=== PATIENT | female | born 1950 | race Caucasian/White ===

== ENCOUNTER 2021-11-19 17:30 | Inpatient (IN) ==
[2021-11-19] MEDS ORDERED: ONDANSETRON INJ 2 MG/ML 2 ML VIAL IV PRN (18:52)
[2021-11-19] MEDS ORDERED: POLYETHYLENE (MIRALAX) 17 GM PACK PO PRN (18:52)
[2021-11-19] MEDS ORDERED: ACETAMINOPHEN 325 MG TAB PO PRN (18:52)
[2021-11-19] MEDS ORDERED: Heparin IV Adult Wt-Based Standard *NO* Bolus Protocol IV SCH (19:29)
[2021-11-19] MEDS ORDERED: DEXTROSE 50% 50 ML SYRINGE IV PRN (19:30)
[2021-11-19] MEDS ORDERED: CARBOHYDRATES FOR HYPOGLYCEMIA PO PRN (19:30)
[2021-11-19] MEDS ORDERED: GLUCOSE 10 TAB/TUBE PO PRN (19:30)
[2021-11-19] MEDS ORDERED: GLUCAGON FOR INJ 1 MG VIAL SQ PRN (19:30)
[2021-11-19] MEDS ORDERED: GLUCOSE 40% GEL 15 GM TUBE PO PRN (19:30)
[2021-11-19] MEDS ORDERED: HEPARIN SODIUM/DEXTROSE 25,000 UNITS/500 ML BAG IV SCH (19:45)
[2021-11-19] MEDS ORDERED: AZELASTINE HCL 0.1% NASAL 200 SPRAYS/27,400 MCG BTL NAE PRN (19:49)
[2021-11-19] MEDS ORDERED: DICYCLOMINE HCL 20 MG TAB PO PRN (19:49)
--- NOTE | 2021-11-19 19:49 | History & Physical Report ---
Date of Service November 19, 2021 Assessment & Plan (1) Chest pain: (2) NSTEMI (non-ST elevated myocardial infarction): (3) CAD (coronary artery disease): Plan: Patient is 70-year-old female with PMH CAD, DM II, HTN, history of TIA, asthma, diastolic dysfunction, paroxysmal SVT, GERD, depression, chronic right RBBB presented as direct admission from [facility] ER for upper back and chest pain. At [facility] EKG without acute ST changes, new left axis deviation was noted. Initial high- sensitivity troponin of 316. Patient was given 3 sublingual nitro and IV morphine with relief of chest pain. 1 inch Nitropaste was applied. Given 324mg ASA. IV heparin started. Cardiology had recommend cardiac cath that could not be completed there and she was transferred to [facility] Upon arrival here at [facility] patient denies chest pain. Reports 3 out of 10 discomfort between scapulas which has decreased since her initial presentation at [facility] ER. Denies any current shortness of breath, palpitations, dizziness History cardiac cath 2014: 30% mid LAD stenosis. Nuclear stress test 06/2021 without inducible ischemia. -Monitor Vitals -Continue IV heparin -Continue nitro paste -Repeat EKG in am -Will trend troponin -Echo -lipid panel in am, continue rosuvastatin -Aspirin -Continue metoprolol succinate -Cardiology consult. Spoke with Dr Ann who accepted patient. Spoke with Dr Walker who recommends continued medical treatment and to notify if patient would develop any recurrent CP (4) Diabetes mellitus, type II: Plan: A1c: 8.3 on 10/10/2021 -Hold home insulin and Ozempic -Basal bolus insulin per protocol (5) HTN (hypertension): Plan: - Continue losartan, metoprolol succinate (6) TIA (transient ischemic attack): Plan: - Continue rosuvastatin (7) Asthma: Plan: No signs of exacerbation -Continue Breo, continue albuterol as needed (8) Diastolic dysfunction: Plan: Appears euvolemic -Hold torsemide and reassess tomorrow (9) Paroxysmal SVT (supraventricular tachycardia): Plan: - Continue metoprolol succinate (10) RBBB: Plan: Chronic RBBB (11) GERD (gastroesophageal reflux disease): Plan: - Continue PPI (12) Depression: Plan: - Continue duloxetine DVT Prophylaxis -On IV heparin Full Code as per discussion with pt Follows with Dr Driscoll for routine care Pt was seen and care coordinated with Dr Montes. See addendum Admission and Anticipated Discharge Date Admission Date: November 19, 2021 History of Present Illness Chief Complaint: CP Primary Care Provider: Meg Davies MD Patient is 70-year-old female with PMH CAD, DM II, HTN, history of TIA, asthma, diastolic dysfunction, paroxysmal SVT, GERD, depression, chronic right RBBB presented as direct admission from [facility] ER. Patient reports has been having intermittent chest pain with associated shortness of breath, mid back pain between scapulas that can occur with rest or exertion for several months. States yesterday had some pain between scapulas. This morning woke up and pain was increased. She reports she pulled some weeds this morning and then around 10 AM started with sharp mid chest pain with some diaphoresis, shortness of breath. Patient denies any dizziness, palpitations. She took 2 sublingual nitro without relief and she presented at [facility] ER. There EKG without acute ST changes, new left axis deviation was noted. Initial high-sensitivity troponin of 316. Patient was given 3 sublingual nitro and IV morphine with relief of chest pain. 1 inch Nitropaste was applied. Discussed with cardiology there who had recommended starting heparin. Patient received heparin bolus at [facility]. She was given 324 mg aspirin. Cardiology had recommended patient undergo cardiac catheterization which was unable to be performed there. [facility] had excepted however no beds currently available and then patient requested coming to an [facility]. Upon arrival here at [facility] patient denies chest pain. Reports 3 out of 10 discomfort between scapulas which has decreased since her initial presentation at [facility] ER. Denies any current shortness of breath, palpitations, dizziness, headache, chest pain. Chronic BLE edema reports is at baseline. Denies fever/chills, N/V/D/C, syncope, vision changes, neck pain, orthopnea, cough, sore throat, choking, otalgia, rhinorrhea, abdominal pain, paresthesias, weakness, extremity weakness, rashes, urinary symptoms. History cardiac cath 2015: 30% mid LAD stenosis. Nuclear stress test 06/2021 without inducible ischemia. Allergies Allergy/AdvReac Type Severity Reaction Status Date / Time furosemide Allergy Mild constipation, Unverified 08/09/13 07:07 vaginal itching lisinopril Allergy Mild cough Unverified 08/09/13 07:07 pioglitazone Allergy Mild shakiness, Unverified 08/09/13 07:07 nausea Home Medications Medication Instructions Recorded Confirmed Type acetaminophen 325 mg tablet 650 mg PO BID PRN Pain 11/19/21 11/19/21 History (Tylenol) albuterol 90 mcg/actuation aerosol 108 mcg inhalation Q4 PRN Wheezing 11/19/21 11/19/21 History inhaler azelastine 137 mcg (0.1 %) nasal 1 spray intranasal BID PRN Nasal 11/19/2111/19 History spray aerosol Congestion calcium 600 mg capsule 600 mg PO DAILY 11/19/21 11/19/21 History cholecalciferol (vitamin D3) 50 50 mcg PO DAILY 11/19/21 11/19/21 History mcg (2,000 unit) capsule (Vitamin D3) dicyclomine 20 mg tablet 20 mg PO QID PRN Abdominal 11/19/21 11/19/21 History Discomfort duloxetine 30 mg capsule,delayed 30 mg PO DAILY 11/19/21 11/19/21 History release fluticasone furoate 200 1 inh inhalation DAILY 11/19/21 11/19/21 History mcg-vilanterol 25 mcg/dose inhalation powder (Breo Ellipta) guaifenesin 1,200 mg tablet, 1,200 mg PO BID PRN Congestion 11/19/21 11/19/21 History extended release 12 hr (Mucinex) insulin aspart U-100 100 unit/mL See Rx Instructions .Route .COMPLEX 11/19/21 11/19/21 History (3 mL) subcutaneous pen (Novolog Flexpen U-100 Insulin aspart) insulin glargine 100 unit/mL 48 unit subcut PM 11/19/21 11/19/21 History subcutaneous cartridge losartan 50 mg tablet 50 mg PO DAILY 11/19/21 11/19/21 History metoprolol succinate 25 mg 25 mg PO DAILY 11/19/21 11/19/21 History tablet,extended release 24 hr nitroglycerin 0.4 mg sublingual 0.4 mg sublingual DIRECTED 11/19/21 11/19/21 History tablet omeprazole 20 mg tablet,delayed 20 mg PO DAILY 11/19/21 11/19/21 History release rosuvastatin 20 mg tablet (Crestor) 20 mg PO DAILY 11/19/21 11/19/21 History semaglutide 1 mg/dose (4 mg/3 mL) 1 mg subcut WK 11/19/21 11/19/21 History subcutaneous pen injector (Ozempic) torsemide 5 mg tablet 5 mg PO DAILY 11/19/21 11/19/21 History Past Med/Surg History Medical History Asthma CAD (coronary artery disease) Depression Diabetes mellitus, type II Diastolic dysfunction GERD (gastroesophageal reflux disease) HTN (hypertension) Paroxysmal SVT (supraventricular tachycardia) RBBB TIA (transient ischemic attack) Surgical History History of appendectomy History of hysterectomy History of tonsillectomy and adenoidectomy Hx of cardiac cath 2014 Family History Sister Breast cancer Grandfather (Maternal) Lung cancer Mother Dementia Social History Smoking Status: Never smoker Hx Alcohol Use: No Hx Substance Use: No Preferred Language: Micronesian Communication Ability: Effective Technical Service Rep Required: No Beliefs That Will Affect Care: None Current Living Situation: Spouse Other Information That Helps Us Care for You: No Feels Safe at Home: Yes Safety Concerns: Feels Safe At This Time Assistive Devices: Glasses Review of Systems Review of Systems: All systems reviewed & are unremarkable except as noted in HPI & below Physical Exam Physical Exam: General: no distress, overweight Head: normocephalic, atraumatic Eyes: conjunctiva non-injected, anicteric ENT: normal inspection external ears, nose, mucous membranes moist Neck: supple, trachea midline Lungs: clear, no respiratory distress, no wheezing/rhonchi/rales CV: RRR, no murmur, trace pretibial edema Abd: normal BS, soft, non-tender Ext: no cyanosis, no calf tenderness Neuro: A&O x 3, no focal deficits noted, normal affect Skin: warm, dry Results & Data Results & Data ([place]) Vital Signs (Past 12 Hours) Vital Signs Temp Pulse Resp BP Pulse Ox O2 Del Method 36.3 C L 73 18 149/74 H 94 11/19/21 18:45 11/19/21 18:45 11/19/21 18:45 11/19/21 18:45 11/19/21 18:45 11/19/21 18:45 Laboratory Results Short CBC 11/19/21 Range/Units 19:19 WBC 8.97 (4.8-10.8) K/ul Hgb 13.7 (12.0-16.0) g/dl Hct 39.8 (34.1-44.9) % Plt Count 209 (130-400) K/uL BMP 11/19/21 19:19 Sodium 139 Potassium 3.9 Chloride 106 Carbon Dioxide 24 BUN 13 Creatinine 0.54 L Glucose 143 H Calcium 9.3 Liver Function 11/19/21 Range/Units 19:19 Total Bilirubin 0.5 (0.2-1.0) mg/dl AST 38 (13-39) U/L ALT 30 (7-52) U/L Alkaline Phosphatase 53 (34-104) U/L Albumin 3.9 (3.4-5.0) gm/dl Diagnostic Findings Chest X-Ray 11/19/21 19:51 XR chest 1V portable CLINICAL HISTORY: Atypical chest pain. COMPARISON STUDY: No previous studies for comparison. FINDINGS: No pneumothorax or pleural effusion is present. There is no consolidation to suggest pneumonia. Moderate cardiomegaly is noted. There is no evidence for overt pulmonary edema. IMPRESSION: No acute cardiopulmonary findings. Cardiomegaly. ACT 112: Negative or not required by law. Electronically signed by: Jayson León M.D. 11/19/2021 8:52 PM ECG Rate (beats per minute): 69 Rhythm: sinus rhythm Findings: + 1st degree AV block and + RBBB Code Status & VTE Plan VTE Prophylaxis Plan VTE Prophylaxis will be ordered: Yes Supervising Physician Co-Signing Physician Notes Attending addendum: The patient was seen and examined in telemetry unit on 11/19/2021 She is transferred from [facility] with unstable angina She is free from any significant pain during my examination On examination Lying in bed comfortably Hemodynamically stable Chestclear to auscultate bilaterally HeartS1-S2 Abdomenbenign Extremitiestrace edema bilaterally Her admission labs, EKG and imaging studies reviewed Has significant elevation of troponin and keeps on rising without any ST elevation in the subsequent EKGs Has non-ST elevation VA and will need cardiac cath Cardiology has been consulted and aware Agree with assessment and plan as outlined above by MNYOR Garcia Dr
[2021-11-19 19:55] LABS: Basophils # (auto) 0.05 K/uL (0-0.2); Basophils % (auto) 0.6 %; Eosinophils # (auto) 0.12 K/uL (0-0.50); Eosinophils % (auto) 1.3 %; Hematocrit (blood only) 39.8 % (34.1-44.9); Hemoglobin 13.7 g/dl (12.0-16.0); Immature Granulocytes # (auto) 0.03 K/uL (0.00-0.02); Immature Granulocytes % (auto) 0.3 %; Lymphocytes # (auto) 3.57 K/uL (1.2-3.4); Lymphocytes % (auto) 39.8 %; Mean Corpuscular Hemoglobin 29.6 pg (25.0-34.0); Mean Corpuscular Hgb Conc 34.4 g/dL (32.0-36.0); Mean Platelet Volume 10.1 fL (9.4-12.3); Monocytes # (auto) 0.62 K/uL (0.24-0.82); Monocytes % (auto) 6.9 %; Neutrophils # (auto) 4.58 K/uL (1.4-6.5); Neutrophils % (auto) 51.1 %; Platelet Count 209 K/uL (130-400); RDW Coefficient of Variation 11.9 % (11.5-14.5); RDW Standard Deviation 37.5 fL (36.4-46.3); Red Blood Count 4.63 M/uL (3.93-5.22); White Blood Count 8.97 K/ul (4.8-10.8)
[2021-11-19] MEDS ORDERED: ALBUTEROL HFA 8 GM INHALER INH PRN (19:59)
[2021-11-19 20:47] LABS: Albumin Globulin Ratio 1.4 (0.9-2); Albumin Level 3.9 gm/dl (3.4-5.0); BUN Creatinine Ratio 24.1 (10-20); Bilirubin,Total 0.5 mg/dl (0.2-1.0); Calcium 9.3 mg/dl (8.5-10.1); Creatinine Clr Calc Pharmacy 105.8 ml/min; Est GFR (Non-African American) 94.9 ml/min; Globulin 2.8 gm/dl (2.5-4.0); Magnesium 1.9 mg/dl (1.7-2.4); Potassium 3.9 mmol/L (3.5-5.1); Total Protein 6.7 gm/dl (6.0-8.3)
[2021-11-19 20:53] LABS: Troponin I High Sensitivity 2785.5 pg/ml (0-14)
--- NOTE | 2021-11-19 20:53 | XRay Report ---
XR chest 1V portable CLINICAL HISTORY: Atypical chest pain. COMPARISON STUDY: No previous studies for comparison. FINDINGS: No pneumothorax or pleural effusion is present. There is no consolidation to suggest pneumo [place]ley. Moderate cardiomegaly is noted. There is no evidence for overt pulmonary edema. IMPRESSION: No acute cardiopulmonary findings. Cardiomegaly. ACT 112: Negative or not required by law. Electronically signed by: Jayson León M.D. 11/19/2021 8:52 PM
[2021-11-19 20:54] LABS: Partial Thromboplastin Time 26.2 Seconds (21.0-31.0)
[2021-11-19] MEDS: INSULIN ASPART PER UNIT SC SCH (21:06)
[2021-11-19] MEDS: LANTUS PER UNIT CHARGE SQ SCH (21:06)
[2021-11-19] MEDS: NITROGLYCERIN 2% OINTMENT 30GM TUBE EXT SCH (23:12)
[2021-11-20 03:51] LABS: Hematocrit (blood only) 39.8 % (34.1-44.9); Hemoglobin 13.5 g/dl (12.0-16.0); Mean Corpuscular Hemoglobin 29.8 pg (25.0-34.0); Mean Corpuscular Hgb Conc 33.9 g/dL (32.0-36.0); Mean Corpuscular Volume 87.9 fL (80.0-100.0); Mean Platelet Volume 9.9 fL (9.4-12.3); Platelet Count 194 K/uL (130-400); RDW Coefficient of Variation 12.1 % (11.5-14.5); RDW Standard Deviation 38.9 fL (36.4-46.3); Red Blood Count 4.53 M/uL (3.93-5.22); White Blood Count 7.33 K/ul (4.8-10.8)
[2021-11-20 04:03] LABS: Partial Thromboplastin Ratio 1.4; Partial Thromboplastin Time 38.4 Seconds (21.0-31.0)
[2021-11-20 04:15] LABS: BUN Creatinine Ratio 20.4 (10-20); Calcium 8.9 mg/dl (8.5-10.1); Chol HDL Ratio 4.6 (0-5); Creatinine Clr Calc Pharmacy 105.8 ml/min; Est GFR (Non-African American) 94.9 ml/min; Potassium 3.7 mmol/L (3.5-5.1)
[2021-11-20] MEDS: NITROGLYCERIN 2% OINTMENT 30GM TUBE EXT SCH ×4 (05:28→23:23)
[2021-11-20] MEDS: INSULIN ASPART PER UNIT SC SCH ×4 (05:29→20:22)
--- NOTE | 2021-11-20 08:25 | Cardiology Consultation ---
Date of Consultation November 20, 2021 Assessment & Plan (1) NSTEMI (non-ST elevated myocardial infarction): (2) Chest pain: (3) CAD (coronary artery disease): (4) Diabetes mellitus, type II: (5) RBBB: Plan I agree the patient will need a cardiac catheterization. She previously has had cardiac catheterizations and understands the procedure. It should be noted however, that previously they tried to go in through the wrist and were unsuccessful and had to go in through the femoral artery. We will plan for a femoral artery approach this time as well. She understands the risks and benefit of a cardiac catheterization also the need for possible coronary intervention such as a coronary stent. Depending on the schedule we hope to have this completed today. History of Present Illness Attending Physician: Raul Santamaria MD History of Present Illness This is a 70-year-old female who follows with Esa Ontiveros through our clinic. She has a history as outlined below. She presented to [facility] emergency department with chest pain and an elevation in her cardiac markers consistent with a non-STEMI. The patient was transferred to [place] in anticipation of the need for cardiac catheterization. She currently is pain-free. She denies shortness of breath. No dizziness or lightheadedness. Past medical history: 1.Atherosclerotic coronary disease with prior diagnostic cardiac catheterization 2008 and 2014 with [id number] 30% mid LAD stenosis only 2.Hypertension with mild diastolic dysfunction 3.Dyslipidemia on therapy 4.Chronic right bundle branch block, chronic Allergies Allergy/AdvReac Type Severity Reaction Status Date / Time furosemide Allergy Mild constipation, Unverified 08/09/13 07:07 vaginal itching lisinopril Allergy Mild cough Unverified 08/09/13 07:07 pioglitazone Allergy Mild shakiness, Unverified 08/09/13 07:07 nausea Home Medications Medication Instructions Recorded Confirmed Type acetaminophen 325 mg tablet 650 mg PO BID PRN Pain 11/19/21 11/19/21 History (Tylenol) albuterol 90 mcg/actuation aerosol 108 mcg inhalation Q4 PRN Wheezing 11/19/21 11/19/21 History inhaler azelastine 137 mcg (0.1 %) nasal 1 spray intranasal BID PRN Nasal 11/19/21 11/19/21 History spray aerosol Congestion calcium 600 mg capsule 600 mg PO DAILY 11/19/21 11/19/21 History cholecalciferol (vitamin D3) 50 50 mcg PO DAILY 11/19/21 11/19/21 History mcg (2,000 unit) capsule (Vitamin D3) dicyclomine 20 mg tablet 20 mg PO QID PRN Abdominal 11/19/21 11/19/21 History Discomfort duloxetine 30 mg capsule,delayed 30 mg PO DAILY 11/19/21 11/19/21 History release fluticasone furoate 200 1 inh inhalation DAILY 11/19/21 11/19/21 History mcg-vilanterol 25 mcg/dose inhalation powder (Breo Ellipta) guaifenesin 1,200 mg tablet, 1,200 mg PO BID PRN Congestion 11/19/21 11/19/21 History extended release 12 hr (Mucinex) insulin aspart U-100 100 unit/mL See Rx Instructions .Route .COMPLEX 11/19/21 11/19/21 History (3 mL) subcutaneous pen (Novolog Flexpen U-100 Insulin aspart) insulin glargine 100 unit/mL 48 unit subcut PM 11/19/21 11/19/21 History subcutaneous cartridge losartan 50 mg tablet 50 mg PO DAILY 11/19/21 11/19/21 History metoprolol succinate 25 mg 25 mg PO DAILY 11/19/21 11/19/21 History tablet,extended release 24 hr nitroglycerin 0.4 mg sublingual 0.4 mg sublingual DIRECTED 11/19/21 11/19/21 History tablet omeprazole 20 mg tablet,delayed 20 mg PO DAILY 11/19/21 11/19/21 History release rosuvastatin 20 mg tablet (Crestor) 20 mg PO DAILY 11/19/21 11/19/21 History semaglutide 1 mg/dose (4 mg/3 mL) 1 mg subcut WK 11/19/21 11/19/21 History subcutaneous pen injector (Ozempic) torsemide 5 mg tablet 5 mg PO DAILY 11/19/21 11/19/21 History Patient History Medical History Asthma CAD (coronary artery disease) Depression Diabetes mellitus, type II Diastolic dysfunction GERD (gastroesophageal reflux disease) HTN (hypertension) Paroxysmal SVT (supraventricular tachycardia) RBBB TIA (transient ischemic attack) Surgical History History of appendectomy History of hysterectomy History of tonsillectomy and adenoidectomy Hx of cardiac cath 2015 Family History Sister Breast cancer Grandfather (Maternal) Lung cancer Mother Dementia Social History Smoking Status: Never smoker Hx Alcohol Use: No Hx Substance Use: No Preferred Language: Arabic Communication Ability: Effective [employer] Sports [employer] Required: No Beliefs That Will Affect Care: None Current Living Situation: Spouse Other Information That Helps Us Care for You: No Feels Safe at Home: Yes Safety Concerns: Feels Safe At This Time Assistive Devices: Glasses Review of Systems Review of Systems: Review of Systems: See HPI for pertinent positives. All other 10 point review of systems are negative. Physical Exam Physical Exam: General: no acute distress and stated age Head: normocephalic, no masses, lesions, tenderness or abnormalities Eyes: conjunctiva are pink and non-injected, sclera clear Neck: supple, no adenopathy, no bruits, normal jugular venous pulse, no hepatojugular reflux Chest: normal shape and normal respiratory effort Lungs: clear to auscultation and percussion Cardiac Exam: - regular rate & rhythm, no murmurs gallops or rubs - normal S1, normal S2 Pulses: 2(+) throughout Abdomen: abdomen soft, non-tender, no abnormal masses and no hepatosplenomegaly Musculoskeletal: no gait disturbance, no joint inflammation, no deforming arthritis Extremities: no edema and no cyanosis Neuro: grossly normal exam Results & Data ([facility]) Vital Signs (Past 12 Hours) Vital Signs Temp Pulse Pulse Resp BP Pulse Ox O2 Del Method 11/20/21 07:51 36.7 C 62 18 130/69 98 Room Air 11/20/21 06:12 61 11/20/21 03:25 36.6 C 62 10 L 112/61 95 Room Air 11/19/21 22:58 36.6 C 62 16 111/56 L 96 Room Air 11/19/21 22:53 59 L 11/19/21 22:14 78 Laboratory Results Laboratory Results - last 24 hr 11/19/21 11/19/21 11/19/21 19:19 19:19 19:25 WBC 8.97 RBC 4.63 Hgb 13.7 Hct 39.8 MCV 86.0 MCH 29.6 MCHC 34.4 RDW Std Deviation 37.5 RDW Coeff of Yaakov 11.9 Plt Count 209 MPV 10.1 Immature Gran % (Auto) 0.3 Neut % (Auto) 51.1 Lymph % (Auto) 39.8 [place] % (Auto) 6.9 Eos % (Auto) 1.3 Baso % (Auto) 0.6 Neut # (Auto) 4.58 Lymph # (Auto) 3.57 H [place] # (Auto) 0.62 Eos # (Auto) 0.12 Baso # (Auto) 0.05 Immature Gran # (Auto) 0.03 H PT 11.0 INR 1.0 APTT 26.2 PTT Ratio 1.0 Sodium 139 Potassium 3.9 Chloride 106 Carbon Dioxide 24 Anion Gap 9 BUN 13 Creatinine 0.54 L Est Cr Clr Drug Dosing 105.8 Est GFR ( Amer) 110.0 Est GFR (Non-Af Amer) 94.9 BUN/Creatinine Ratio 24.1 H Glucose 143 H POC Glucose Calcium 9.3 Magnesium 1.9 Total Bilirubin 0.5 AST 38 ALT 30 Alkaline Phosphatase 53 Troponin I High Sens 2785.5 H* Total Protein 6.7 Albumin 3.9 Globulin 2.8 Albumin/Globulin Ratio 1.4 Triglycerides Cholesterol LDL Cholesterol, Calc VLDL Cholesterol, Calc HDL Cholesterol Cholesterol/HDL Ratio Hepatitis C Ab (EIA) Hep C Ab Signal/Cutoff SARS-CoV-2, RNA, NAAT 11/19/21 11/19/21 11/20/21 20:00 20:42 03:30 WBC 7.33 RBC 4.53 Hgb 13.5 Hct 39.8 MCV 87.9 MCH 29.8 MCHC 33.9 RDW Std Deviation 38.9 RDW Coeff of Yaakov 12.1 Plt Count 194 MPV 9.9 Immature Gran % (Auto) Neut % (Auto) Lymph % (Auto) [place] % (Auto) Eos % (Auto) Baso % (Auto) Neut # (Auto) Lymph # (Auto) [place] # (Auto) Eos # (Auto) Baso # (Auto) Immature Gran # (Auto) PT INR APTT PTT Ratio Sodium Potassium Chloride Carbon Dioxide Anion Gap BUN Creatinine Est Cr Clr Drug Dosing Est GFR ( Amer) Est GFR (Non-Af Amer) BUN/Creatinine Ratio Glucose POC Glucose 181 H Calcium Magnesium Total Bilirubin AST ALT Alkaline Phosphatase Troponin I High Sens Total Protein Albumin Globulin Albumin/Globulin Ratio Triglycerides Cholesterol LDL Cholesterol, Calc VLDL Cholesterol, Calc HDL Cholesterol Cholesterol/HDL Ratio Hepatitis C Ab (EIA) Hep C Ab Signal/Cutoff SARS-CoV-2, RNA, NAAT NEGATIVE 11/20/21 11/20/21 11/20/21 03:30 03:30 03:30 WBC RBC Hgb Hct MCV MCH MCHC RDW Std Deviation RDW Coeff of Yaakov Plt Count MPV Immature Gran % (Auto) Neut % (Auto) Lymph % (Auto) [place] % (Auto) Eos % (Auto) Baso % (Auto) Neut # (Auto) Lymph # (Auto) [place] # (Auto) Eos # (Auto) Baso # (Auto) Immature Gran # (Auto) PT INR APTT PTT Ratio Sodium 139 Potassium 3.7 Chloride 105 Carbon Dioxide 26 Anion Gap 8 BUN 11 Creatinine 0.54 L Est Cr Clr Drug Dosing 105.8 Est GFR ( Amer) 110.0 Est GFR (Non-Af Amer) 94.9 BUN/Creatinine Ratio 20.4 H Glucose 156 H POC Glucose Calcium 8.9 Magnesium Total Bilirubin AST ALT Alkaline Phosphatase Troponin I High Sens 1995.7 H* D Total Protein Albumin Globulin Albumin/Globulin Ratio Triglycerides 215 H Cholesterol 157 LDL Cholesterol, Calc 80 VLDL Cholesterol, Calc 43 H HDL Cholesterol 34 Cholesterol/HDL Ratio 4.6 Hepatitis C Ab (EIA) Pending Hep C Ab Signal/Cutoff Pending SARS-CoV-2, RNA, NAAT 11/20/21 11/20/21 11/20/21 03:30 05:26 07:43 WBC RBC Hgb Hct MCV MCH MCHC RDW Std Deviation RDW Coeff of Yaakov Plt Count MPV Immature Gran % (Auto) Neut % (Auto) Lymph % (Auto) [place] % (Auto) Eos % (Auto) Baso % (Auto) Neut # (Auto) Lymph # (Auto) [place] # (Auto) Eos # (Auto) Baso # (Auto) Immature Gran # (Auto) PT INR APTT 38.4 H PTT Ratio 1.4 Sodium Potassium Chloride Carbon Dioxide Anion Gap BUN Creatinine Est Cr Clr Drug Dosing Est GFR ( Amer) Est GFR (Non-Af Amer) BUN/Creatinine Ratio Glucose POC Glucose 148 H Calcium Magnesium Total Bilirubin AST ALT Alkaline Phosphatase Troponin I High Sens 2197.0 H* Total Protein Albumin Globulin Albumin/Globulin Ratio Triglycerides Cholesterol LDL Cholesterol, Calc VLDL Cholesterol, Calc HDL Cholesterol Cholesterol/HDL Ratio Hepatitis C Ab (EIA) Hep C Ab Signal/Cutoff SARS-CoV-2, RNA, NAAT 11/20/21 08:07 WBC RBC Hgb Hct MCV MCH MCHC RDW Std Deviation RDW Coeff of Yaakov Plt Count MPV Immature Gran % (Auto) Neut % (Auto) Lymph % (Auto) [place] % (Auto) Eos % (Auto) Baso % (Auto) Neut # (Auto) Lymph # (Auto) [place] # (Auto) Eos # (Auto) Baso # (Auto) Immature Gran # (Auto) PT INR APTT PTT Ratio Sodium Potassium Chloride Carbon Dioxide Anion Gap BUN Creatinine Est Cr Clr Drug Dosing Est GFR ( Amer) Est GFR (Non-Af Amer) BUN/Creatinine Ratio Glucose POC Glucose 162 H Calcium Magnesium Total Bilirubin AST ALT Alkaline Phosphatase Troponin I High Sens Total Protein Albumin Globulin Albumin/Globulin Ratio Triglycerides Cholesterol LDL Cholesterol, Calc VLDL Cholesterol, Calc HDL Cholesterol Cholesterol/HDL Ratio Hepatitis C Ab (EIA) Hep C Ab Signal/Cutoff SARS-CoV-2, RNA, NAAT Medications Administered Current Inpatient Medications Acetaminophen (Acetaminophen 325 Mg Tab) 650 mg PO Q4H PRN PRN Reason: Pain or Fever Stop: 12/19/21 18:51 Last Admin: 11/19/21 21:16 Dose: 650 mg Albuterol (Albuterol Hfa 8 Gm Inhaler) 1 puffs INH Q4R PRN PRN Reason: Wheezing Stop: 12/19/21 19:58 Aspirin (Aspirin 81 Mg Ectab) 81 mg PO QAM MEGHAN Stop: 12/20/21 08:59 Last Admin: 11/20/21 08:51 Dose: 81 mg Azelastine HCl (Azelastine Hcl 0.1% Nasal 200 Sprays/27,400 Mcg Btl) 1 sprays KIMBERLY BID PRN PRN Reason: Nasal Congestion Stop: 12/19/21 19:48 Calcium Carbonate (Calcium Carbonate 1250mg Tab) 1,250 mg PO DAILY MEGHAN Stop: 12/20/21 08:59 Last Admin: 11/20/21 08:52 Dose: 1,250 mg Dextrose (Dextrose 50% 50 Ml Syringe) 25 - 50 ml IV UD PRN; Protocol PRN Reason: Hypoglycemia Protocol Stop: 12/19/21 19:29 Dicyclomine HCl (Dicyclomine Hcl 20 Mg Tab) 20 mg PO QID PRN PRN Reason: Abdominal Discomfort Stop: 12/19/21 19:48 Duloxetine HCl (Duloxetine Hcl 30 Mg Cap) 30 mg PO DAILY MEGHAN Stop: 12/20/21 08:59 Last Admin: 11/20/21 08:52 Dose: 30 mg Fluticasone/Vilanterol (Fluticasone/Vilanterol 200/25mcg 14 Puffs/Inhaler) 1 puffs INH DAILY MEGHAN Stop: 12/20/21 08:59 Last Admin: 11/20/21 08:56 Dose: 1 puffs Glucagon (Glucagon For Inj 1 Mg Vial) 1 mg SQ UD PRN; Protocol PRN Reason: Hypoglycemia Protocol Stop: 12/19/21 19:29 Glucose (Glucose 40% Gel 15 Gm Tube) 15 - 30 gm PO UD PRN; Protocol PRN Reason: Hypoglycemia Protocol Stop: 12/19/21 19:29 Glucose (Glucose 10 Tab/Tube) 4 - 8 tab PO UD PRN; Protocol PRN Reason: Hypoglycemia Treatment Stop: 12/19/21 19:29 Heparin Sodium/Dextrose (Heparin Sodium/Dextrose) 25,000 units in 500 mls @ 26 mls/hr IV .[id number] [facility]; Protocol Stop: 12/19/21 19:44 Last Titration: 11/20/21 04:09 Dose: 1,300 units/hr, 26 mls/hr Sodium Chloride (Nss 1000ml) 1,000 mls @ 1 mls/hr IV .Q24H [facility] Stop: 12/20/21 08:59 Insulin Aspart (Insulin Aspart Per Unit) 0 units SC ACHS MEGHAN Stop: 12/19/21 20:59 Last Admin: 11/20/21 05:29 Dose: Not Given Insulin Glargine (Lantus Per Unit Charge) 0 - 24 units SQ BID [facility] Stop: 12/19/21 20:59 Last Admin: 11/20/21 08:56 Dose: 12 units Losartan Potassium (Losartan Potassium 50 Mg Tab) 50 mg PO DAILY MEGHAN Stop: 12/20/21 08:59 Last Admin: 11/20/21 08:52 Dose: 50 mg Metoprolol Succinate (Metoprolol Succ 25mg Ext Rel Tab) 25 mg PO DAILY [facility] Stop: 12/20/21 08:59 Last Admin: 11/20/21 08:53 Dose: 25 mg Miscellaneous (Carbohydrates For Hypoglycemia ) 15 - 30 gm PO UD PRN PRN Reason: Hypoglycemia Protocol Stop: 12/19/21 19:29 Nitroglycerin (Nitroglycerin 2% Ointment 30gm Tube) 1 inch EXT Q6 MEGHAN Stop: 12/20/21 00:00 Last Admin: 11/20/21 05:28 Dose: 1 inch Nitroglycerin (Nitroglycerin 0.3 Mg/1 Tab 100 Tab Btl) 0.3 mg SL PRN PRN PRN Reason: Chest Pain Stop: 12/20/21 08:50 Ondansetron HCl (Ondansetron Inj 2 Mg/Ml 2 Ml Vial) 4 mg IV Q6H PRN PRN Reason: Nausea Stop: 12/19/21 18:51 Pantoprazole Sodium (Pantoprazole 40 Mg Tab) 40 mg PO DAILY MEGHAN Stop: 12/20/21 08:59 Last Admin: 11/20/21 08:52 Dose: 40 mg Polyethylene Glycol (Polyethylene (Miralax) 17 Gm Pack) 17 gm PO DAILY PRN PRN Reason: Constipation Stop: 12/19/21 18:51 Rosuvastatin Calcium (Rosuvastatin Calcium 20 Mg Tab) 20 mg PO DAILY MEGHAN Stop: 12/20/21 08:59 Last Admin: 11/20/21 08:52 Dose: 20 mg Vitamin D (Cholecalciferol 1,000 Units 25 Mcg Tab) 2,000 units PO DAILY MEGHAN Stop: 12/20/21 08:59 Last Admin: 11/20/21 08:52 Dose: 2,000 units
[2021-11-20] MEDS: ASPIRIN 81 MG ECTAB PO SCH (08:51)
[2021-11-20] MEDS: DULoxetine HCL 30 MG CAP PO SCH (08:52)
[2021-11-20] MEDS: LOSARTAN POTASSIUM 50 MG TAB PO SCH (08:52)
[2021-11-20] MEDS: ROSUVASTATIN CALCIUM 20 MG TAB PO SCH (08:52)
[2021-11-20] MEDS: PANTOprazole 40 MG TAB PO SCH (08:52)
[2021-11-20] MEDS: CALCIUM CARBONATE 1250MG TAB PO SCH (08:52)
[2021-11-20] MEDS: CHOLECALCIFEROL 1,000 UNITS 25 MCG TAB PO SCH (08:52)
[2021-11-20] MEDS: METOPROLOL SUCC 25MG EXT REL TAB PO SCH (08:53)
[2021-11-20] MEDS: FLUTICASONE/VILANTEROL 200/25MCG 14 PUFFS/INHALER INH SCH (08:56)
[2021-11-20] MEDS: LANTUS PER UNIT CHARGE SQ SCH ×2 (08:56→20:30)
[2021-11-20] MEDS ORDERED: SODIUM CHLORIDE 0.9% 1000ML 1,000 ML IV SCH (09:00)
[2021-11-20] MEDS ORDERED: NITROGLYCERIN SL 0.4 MG/TAB TAB ONE (09:24)
[2021-11-20] MEDS: NITROGLYCERIN SL 0.4 MG/TAB TAB SL PRN ×3 (09:40→14:26)
[2021-11-20 10:40] LABS: Partial Thromboplastin Ratio 1.4; Partial Thromboplastin Time 38.7 Seconds (21.0-31.0)
[2021-11-20] MEDS ORDERED: HEPARIN (PORCINE) 1000 UNIT/ML 10 ML (CATH LAB USE ONLY) ONE (12:53)
[2021-11-20] MEDS ORDERED: fentaNYL citrate 100 MCG/2 ML VIAL ONE ×2 (12:54→14:20)
[2021-11-20] MEDS ORDERED: niCARdipine HCL INJ 2.5 MG/ML 10 ML AMP ONE (12:54)
[2021-11-20] MEDS ORDERED: MIDAZOLAM HCL 1 MG/ML 2ML VIAL ONE ×2 (12:54→13:48)
[2021-11-20] MEDS ORDERED: NITROGLYCERIN/D5W 100MCG/ML 20ML SYR ONE (12:54)
--- NOTE | 2021-11-20 12:55 | Pre Anesthesia Assessment ---
Date of Service November 20, 2021 Pre Sedation Assessment Vital Signs Temp Pulse Pulse Resp BP BP Pulse Ox 11/20/21 11:21 98.2 F 71 16 124/68 92 11/20/21 09:49 128/70 11/20/21 09:41 63 145/76 H 11/20/21 09:35 147/74 H 11/20/21 07:51 98.1 F 62 18 130/69 98 11/20/21 06:12 61 11/20/21 03:25 97.9 F 62 10 L 112/61 95 11/19/21 22:58 97.9 F 62 16 111/56 L 96 11/19/21 22:53 59 L 11/19/21 22:14 78 11/19/21 18:45 97.3 F L 73 18 149/74 H 94 O2 Del Method 11/20/21 11:21 Room Air 11/20/21 09:49 11/20/21 09:41 11/20/21 09:35 11/20/21 07:51 Room Air 11/20/21 06:12 11/20/21 03:25 Room Air 11/19/21 22:58 Room Air 11/19/21 22:53 11/19/21 22:14 11/19/21 18:45 Room Air Cardiovascular RRR, no murmur, no edema Respiratory normal respiratory effort, lungs clear to auscultation Pre-Sedation Airway Assessment Smoking Status: Never smoker Hx Sleep Apnea: No Hx Difficult Intubation: No Short, Thick Neck: No Thyromental Distance: > or= 3.5 Finger Breadths Oral Cavity: + WNL Mallampati Class: III ASA: ASA4 Procedure Planning Contraindications for Sedation: none Current Medications Reviewed: Yes Notes The planned sedation has been discussed with the patient. Informed Consent was obtained. I have identified the patient, determined the appropriateness of sedation and have assessed the patient immediately prior to the procedure. All medicine(s) and interventions are by my order.
--- NOTE | 2021-11-20 12:56 | Cardiac Catheterization ---
[facility] Data: Sex Crimes Detective Cardiac Status Clinical evaluation leading to the procedure CAD Presenation: Non STEMI Anginal Classification: CCS IV Diagnostic Physicians Name: Rob Walker MD Closure Device Recommendations: PCI without planned CABG Cardiac Cath Procedure Full Procedure Date November 20, 2021 Pre-Procedure Diagnosis Pre-Procedure Diagnosis: Non STEMI AUC Score AUC Score: 8 Post-Procedure Diagnosis Post-Procedure Diagnosis: Severe CAD, Successful PCI and Normal Intracardiac Pressures Procedure(s) Performed Procedure(s) Performed: Coronary Angiography, Left Heart Cath and Drug Eluting Stent Sliver Chopper Rob Walker MD Bin Tripper Operator(s) Osvaldo Estimated Blood Loss Estimated Blood Loss: 15 Medication(s) Medication(s): Fentanyl, Heparin, Lidocaine 1%, Nicardipine, Nitroglycerin and Versed Summary of Findings Indication: NSTEMI Access: 6 Fr left radial artery Catheters: Diagnostic JR4, JL 3.5. EBU 3.5 guide Findings: LM -normal caliber, no significant disease LAD -medium caliber, proximal luminal regularities, 80% mid stenosis just after takeoff of D1, distal vessel without significant disease and extends to apex. Medium D1 with 30% ostial stenosis Circumflex -medium caliber, 70% focal distal stenosis just after OM 2 and extending into medium OM3. RCA -dominant, large caliber, midsegment luminal irregularities LVEDP -13 -- PCI -- Antithrombotic therapy: Heparin, clopidogrel Procedure: Left main cannulated with EBU 3.5 guide Pre-procedure flow SHARMAINE 2-3 BMW wire passed across lesion into distal vessel Prowater wire passed into diagonal [place] IVUS catheter placed to mid LAD. Unable to pass across stenosis. Pullback revealed calcified mid segment disease. Proximal LAD and left main without significant disease. Mid LAD lesion predilated with 2.5 compliant balloon Dilated lesion stented with 2.75 x 26 mm [place] drug-eluting stent Stent post-dilated with 3.25 noncompliant balloon IC vasodilators administered for spasm. Mild residual ostial stenosis of jailed diagonal but SHARMAINE-3 flow. Jailed septal with severe ostial stenosis but SHARMAINE-3 flow. Post procedure SHARMAINE 3 flow in LAD, stent well expanded with minimal residual stenosis and no apparent cardiac complications. Arterial Closure: TR band Summary: 1. Severe multivessel coronary artery disease -80 to 90% mid LAD 70% distal circumflex into OM3 2. Normal intracardiac filling pressure 3. Successful PCI of proximal to mid LAD with single drug-eluting stent (2.75 x 26 mm [place]; postdilated with 3.25 NC). Recommendations: To PCU for continued monitoring Loaded with clopidogrel 600 mg in Sex Crimes Detective Continue dual-antiplatelet therapy for at least 1 year Continue statin, and ASCVD risk factor modification Consult cardiac Rehab Plan for medical management of residual CAD. If refractory exertional symptoms in the future distal circumflex appears amenable to PCI. Hemodynamics Rest Ao:: 114/67/98 Final Ao: 124/74/43 LV: 115/13 Recommendations Recommendations: PCI without planned CABG Specimens Specimens: None Radiation Exposure (mGy) 2845 Contrast (mls) 140 Anesthesia Moderate 0371-0222 Procedural Complication(s) None Disposition PCU I attest to the content of the Intraoperative Record and any orders documented therein. Any exceptions are noted below. [facility] Card Cath Procedure Codes Cardiac Catheterization Procedure 1: Cardiovascular Cath Procedures: 95338 Coronaries and LHC (+/-LV) Therapeutic Services & Ancillary Procedure 1: Cardiovascular Tx and Anc Procedures: 15456 IV Ultrasound (Coronary or Graft) Moderate Sedation Procedure 1: Sedation/Anesthesia: 05933 Mod Sedation by the same physician;Init15 Min Child Age 5 & Up Procedure 2: Sedation/Anesthesia: 43054 Mod Sedation by the same physician; Ea [id number] Minutes Stenting Procedure 1: Cardiovascular Stent Procedures: 84551 Perc transcatheter placement of intracoronary stent(s), with ang PG Care Time/CCT Total # of Minutes Spent Total Time Spent with Patient: Total time spent is greater than 50% in coordination of care (as documented) at patient's floor/unit and/or counseling patient:
[2021-11-20] MEDS ORDERED: CLOPIDOGREL BISULFATE 300 MG TAB ONE (14:00)
--- NOTE | 2021-11-20 14:16 | Hospitalist Progress Note ---
Date of Service November 20, 2021 Assessment & Plan (1) Chest pain: (2) NSTEMI (non-ST elevated myocardial infarction): (3) CAD (coronary artery disease): Plan: Patient is 70-year-old female with PMH CAD, DM II, HTN, history of TIA, asthma, diastolic dysfunction, paroxysmal SVT, GERD, depression, chronic right RBBB presented as direct admission from [facility] ER for upper back and chest pain. At [facility] EKG without acute ST changes, new left axis deviation was noted. Initial high- sensitivity troponin of 316. Patient was given 3 sublingual nitro and IV morphine with relief of chest pain. 1 inch Nitropaste was applied. Given 324mg ASA. IV heparin started. Cardiology had recommend cardiac cath that could not be completed there and she was transferred to [facility] Upon arrival here at [facility] patient denies chest pain. Reports 3 out of 10 discomfort between scapulas which has decreased since her initial presentation at [facility] ER. Denies any current shortness of breath, palpitations, dizziness History cardiac cath 2014: 30% mid LAD stenosis. Nuclear stress test 06/2021 without inducible ischemia. Plan: -Patient taken to cardiac cath due to persistent chest pain. Continue on statin, DAPT ( based on cardiac cath finding, currently on aspirin). -Patient is also on beta-audie (metoprolol 25 mg once daily) and losartan 50 mg once daily. -Continue to monitor on telemetry -Echo after cardiac cath. (4) Diabetes mellitus, type II: Plan: A1c: 8.3 on 10/10/2021 -Hold home insulin and Ozempic -Basal bolus insulin per protocol (5) HTN (hypertension): Plan: - Continue losartan, metoprolol succinate (6) TIA (transient ischemic attack): Plan: - Continue rosuvastatin (7) Asthma: Plan: No signs of exacerbation -Continue Breo, continue albuterol as needed (8) Diastolic dysfunction: Plan: Appears euvolemic -Hold torsemide and reassess tomorrow (9) Paroxysmal SVT (supraventricular tachycardia): Plan: - Continue metoprolol succinate (10) RBBB: Plan: Chronic RBBB (11) GERD (gastroesophageal reflux disease): Plan: - Continue PPI (12) Depression: Plan: - Continue duloxetine DVT Prophylaxis -On IV heparin Full Code as per discussion with pt Follows with Dr Driscoll for routine care Admission and Anticipated Discharge Date Admission Date: November 19, 2021 Subjective Patient seen and examined at bedside. She continues to complain of mild chest pain;3-4 /10 in substernal region. She also continues to complain of pain and back of her scapula. Telemetrysinus rhythm; no alarms overnight. Review of Systems Review of Systems: All systems reviewed & are unremarkable except as noted in Subjective Physical Exam Physical Exam: General: no distress, overweight Head: normocephalic, atraumatic Eyes: conjunctiva non-injected, anicteric ENT: normal inspection external ears, nose, mucous membranes moist Neck: supple, trachea midline Lungs: clear, no respiratory distress, no wheezing/rhonchi/rales CV: RRR, no murmur, trace pretibial edema Abd: normal BS, soft, non-tender Ext: no cyanosis, no calf tenderness Neuro: A&O x 3, no focal deficits noted, normal affect Skin: warm, dry Results & Data Results & Data ([facility]) Vital Signs (Past 12 Hours) Vital Signs Temp Pulse Pulse Resp BP BP Pulse Ox 11/20/21 14:10 73 16 133/76 94 11/20/21 11:21 36.8 C 71 16 124/68 92 11/20/21 09:49 128/70 11/20/21 09:41 63 145/76 H 11/20/21 09:35 147/74 H 11/20/21 07:51 36.7 C 62 18 130/69 98 11/20/21 06:12 61 11/20/21 03:25 36.6 C 62 10 L 112/61 95 O2 Del Method 11/20/21 14:10 Room Air 11/20/21 11:21 Room Air 11/20/21 09:49 11/20/21 09:41 11/20/21 09:35 11/20/21 07:51 Room Air 11/20/21 06:12 11/20/21 03:25 Room Air Diagnostic Findings Laboratory Results WBC 7.33 K/ul (4.8-10.8) 11/20/21 03:30 RBC 4.53 M/uL (3.93-5.22) 11/20/21 03:30 Hgb 13.5 g/dl (12.0-16.0) 11/20/21 03:30 Hct 39.8 % (34.1-44.9) 11/20/21 03:30 MCV 87.9 fL (80.0-100.0) 11/20/21 03:30 MCH 29.8 pg (25.0-34.0) 11/20/21 03:30 MCHC 33.9 g/dL (32.0-36.0) 11/20/21 03:30 RDW Std Deviation 38.9 fL (36.4-46.3) 11/20/21 03:30 RDW Coeff of Yaakov 12.1 % (11.5-14.5) 11/20/21 03:30 Plt Count 194 K/uL (130-400) 11/20/21 03:30 MPV 9.9 fL (9.4-12.3) 11/20/21 03:30 Immature Gran % (Auto) 0.3 % 11/19/21 19:19 Neut % (Auto) 51.1 % 11/19/21 19:19 Lymph % (Auto) 39.8 % 11/19/21 19:19 [place] % (Auto) 6.9 % 11/19/21 19:19 Eos % (Auto) 1.3 % 11/19/21 19:19 Baso % (Auto) 0.6 % 11/19/21 19:19 Neut # (Auto) 4.58 K/uL (1.4-6.5) 11/19/21 19:19 Lymph # (Auto) 3.57 K/uL (1.2-3.4) H 11/19/21 19:19 [place] # (Auto) 0.62 K/uL (0.24-0.82) 11/19/21 19:19 Eos # (Auto) 0.12 K/uL (0-0.50) 11/19/21 19:19 Baso # (Auto) 0.05 K/uL (0-0.2) 11/19/21 19:19 Immature Gran # (Auto) 0.03 K/uL (0.00-0.02) H 11/19/21 19:19 PT 11.0 Seconds (9.0-12.0) 11/19/21 19:25 INR 1.0 (0.9-1.1) 11/19/21 19:25 APTT 38.7 Seconds (21.0-31.0) H 11/20/21 10:13 PTT Ratio 1.4 11/20/21 10:13 Sodium 139 mmol/L (136-145) 11/20/21 03:30 Potassium 3.7 mmol/L (3.5-5.1) 11/20/21 03:30 Chloride 105 mmol/L (98-107) 11/20/21 03:30 Carbon Dioxide 26 mmol/L (21-32) 11/20/21 03:30 Anion Gap 8 (3-11) 11/20/21 03:30 BUN 11 mg/dl (6-23) 11/20/21 03:30 Creatinine 0.54 mg/dl (0.6-1.2) L 11/20/21 03:30 Est Cr Clr Drug Dosing 105.8 ml/min 11/20/21 03:30 Est GFR ( Amer) 110.0 ml/min 11/20/21 03:30 Est GFR (Non-Af Amer) 94.9 ml/min 11/20/21 03:30 BUN/Creatinine Ratio 20.4 (10-20) H 11/20/21 03:30 Glucose 156 mg/dl (70-99(Fasting)) H 11/20/21 03:30 POC Glucose 181 mg/dl (70-99) H 11/20/21 11:40 Calcium 8.9 mg/dl (8.5-10.1) 11/20/21 03:30 Magnesium 1.9 mg/dl (1.7-2.4) 11/19/21 19:19 Total Bilirubin 0.5 mg/dl (0.2-1.0) 11/19/21 19:19 AST 38 U/L (13-39) 11/19/21 19:19 ALT 30 U/L (7-52) 11/19/21 19:19 Alkaline Phosphatase 53 U/L (34-104) 11/19/21 19:19 Troponin I High Sens 2197.0 pg/ml (0-14) H* 11/20/21 07:43 Total Protein 6.7 gm/dl (6.0-8.3) 11/19/21 19:19 Albumin 3.9 gm/dl (3.4-5.0) 11/19/21 19:19 Globulin 2.8 gm/dl (2.5-4.0) 11/19/21 19:19 Albumin/Globulin Ratio 1.4 (0.9-2) 11/19/21 19:19 Triglycerides 215 mg/dl (0-150) H 11/20/21 03:30 Cholesterol 157 mg/dl (0-200) 11/20/21 03:30 LDL Cholesterol, Calc 80 mg/dl 11/20/21 03:30 VLDL Cholesterol, Calc 43 mg/dl (0-30) H 11/20/21 03:30 HDL Cholesterol 34 mg/dl 11/20/21 03:30 Cholesterol/HDL Ratio 4.6 (0-5) 11/20/21 03:30 SARS-CoV-2, RNA, NAAT NEGATIVE (NEGATIVE) 11/19/21 20:00 Impressions Chest X-Ray 11/19/21 19:51 XR chest 1V portable CLINICAL HISTORY: Atypical chest pain. COMPARISON STUDY: No previous studies for comparison. FINDINGS: No pneumothorax or pleural effusion is present. There is no consolidation to suggest pneumonia. Moderate cardiomegaly is noted. There is no evidence for overt pulmonary edema. IMPRESSION: No acute cardiopulmonary findings. Cardiomegaly. ACT 112: Negative or not required by law. Electronically signed by: Jayson León M.D. 11/19/2021 8:52 PM
[2021-11-20] MEDS ORDERED: LIDOCAINE 1% LOCAL 20 ML VIAL ONE (15:11)
--- NOTE | 2021-11-20 16:04 | Post Anesthesia Assessment ---
Date of Service November 20, 2021 Post Sedation Assessment Vital Signs Temp Pulse Pulse Resp BP BP Pulse Ox 11/20/21 15:55 98.1 F 71 18 128/74 95 11/20/21 15:40 97.9 F 64 16 129/72 94 11/20/21 15:25 97.7 F 69 18 126/66 96 11/20/21 15:10 97.5 F L 69 18 128/69 95 11/20/21 14:55 97.7 F 64 16 121/68 94 11/20/21 14:07 73 16 133/76 94 11/20/21 11:21 98.2 F 71 16 124/68 92 11/20/21 09:49 128/70 11/20/21 09:41 63 145/76 H 11/20/21 09:35 147/74 H 11/20/21 07:51 98.1 F 62 18 130/69 98 11/20/21 06:12 61 11/20/21 03:25 97.9 F 62 10 L 112/61 95 11/19/21 22:58 97.9 F 62 16 111/56 L 96 11/19/21 22:53 59 L 11/19/21 22:14 78 11/19/21 18:45 97.3 F L 73 18 149/74 H 94 O2 Del Method 11/20/21 15:55 Room Air 11/20/21 15:40 Room Air 11/20/21 15:25 Room Air 11/20/21 15:10 Room Air 11/20/21 14:55 Room Air 11/20/21 14:07 Room Air 11/20/21 11:21 Room Air 11/20/21 09:49 11/20/21 09:41 11/20/21 09:35 11/20/21 07:51 Room Air 11/20/21 06:12 11/20/21 03:25 Room Air 11/19/21 22:58 Room Air 11/19/21 22:53 11/19/21 22:14 11/19/21 18:45 Room Air Recovery Score Activity: Moves 4 extremities Respiration: Deep Breath/Cough Circulation: +/-20% PreAnes Value Consciousness: Fully Awake Oxygen Saturation: > 92% On Room Air Post Anesthesia Score: 10 Discharge Sedation Level of Care: Fast Track Phase II Post Sedation Plan On clinical assessment, the patient appears to have tolerated the sedation without complications. Patient is recovering as anticipated. Patient will continue to be monitored by nursing and may be discharged when sedation discharge criteria are met per below protocol. Upon Completions of procedure up to 15 minutes continue every 5 minute vital signs and the P.A.R. score; then discharge to a Phase I or Fast Track to Phase II per the following guidelines: * Discharge Patient to appropriate Phase II area if PAR is 8 or greater or return to pre- procedure baseline. The post - procedure orders will be as directed. * If PAR score is less than 8 or not return to pre-procedure baseline then patient will follow Phase I monitoring till PAR is reached for Phase II. The Phase I may be done in procedure room or may call to secure a Phase I area. * If naloxone or flumazenil are used for reversal, hold in Phase I for continued monitoring from when last reversal dose was given for a minimum of 60 minutes or longer pending the nurse and/or physician discretion of patient condition before discharge to Phase II. Please call the Sedation Physician to re-evaluate and complete post-note for discharge to Phase II area. Do NOT discharge from procedure sedation or Phase 1 until post- sedation evaluation note is complete by procedure /sedation MD Sedation Discharge Instructions to be given to the patient at discharge to home.
--- NOTE | 2021-11-20 17:45 | Electrocardiogram Report ---
Test Reason : Blood Pressure : / mmHG Vent. Rate : 069 BPM Atrial Rate : 069 BPM P-R Int : 212 ms QRS Dur : 134 ms QT Int : 458 ms P-R-T Axes : 050 -02 002 degrees QTc Int : 490 ms Sinus rhythm with 1st degree A-V block Right bundle branch block Abnormal ECG No previous ECGs available Confirmed by Rob Cherry ([id number]) on 11/20/2021 5:45:15 PM Referred By: Lianet Elliott Confirmed By:Austen Cherry
--- NOTE | 2021-11-20 17:48 | Electrocardiogram Report ---
Test Reason : Blood Pressure : / mmHG Vent. Rate : 057 BPM Atrial Rate : 057 BPM P-R Int : 220 ms QRS Dur : 096 ms QT Int : 490 ms P-R-T Axes : 053 006 -24 degrees QTc Int : 476 ms Sinus bradycardia with 1st degree A-V block Low voltage QRS Prolonged QT Abnormal ECG Incomplete right bundle branch block Confirmed by Rob Cherry ([id number]) on 11/20/2021 5:48:02 PM Referred By: Lianet Elliott Confirmed By:Austen Cherry
--- NOTE | 2021-11-20 18:00 | Electrocardiogram Report ---
Test Reason : Blood Pressure : / mmHG Vent. Rate : 069 BPM Atrial Rate : 069 BPM P-R Int : 200 ms QRS Dur : 130 ms QT Int : 464 ms P-R-T Axes : 049 -22 065 degrees QTc Int : 497 ms Normal sinus rhythm Right bundle branch block Abnormal ECG Confirmed by Rob Cherry ([id number]) on 11/20/2021 5:59:53 PM Referred By: Lianet Elliott Confirmed By:Austen Cherry
[2021-11-21] MEDS: NITROGLYCERIN 2% OINTMENT 30GM TUBE EXT SCH ×2 (05:39→12:15)
[2021-11-21] MEDS: DULoxetine HCL 30 MG CAP PO SCH (08:24)
[2021-11-21] MEDS: CALCIUM CARBONATE 1250MG TAB PO SCH (08:24)
[2021-11-21] MEDS: METOPROLOL SUCC 25MG EXT REL TAB PO SCH (08:24)
[2021-11-21] MEDS: ROSUVASTATIN CALCIUM 20 MG TAB PO SCH (08:24)
[2021-11-21] MEDS: ASPIRIN 81 MG ECTAB PO SCH (08:24)
[2021-11-21] MEDS: LOSARTAN POTASSIUM 50 MG TAB PO SCH (08:24)
[2021-11-21] MEDS: PANTOprazole 40 MG TAB PO SCH (08:24)
[2021-11-21] MEDS: CHOLECALCIFEROL 1,000 UNITS 25 MCG TAB PO SCH (08:24)
[2021-11-21] MEDS: FLUTICASONE/VILANTEROL 200/25MCG 14 PUFFS/INHALER INH SCH (08:27)
[2021-11-21] MEDS: LANTUS PER UNIT CHARGE SQ SCH (08:41)
[2021-11-21] MEDS: INSULIN ASPART PER UNIT SC SCH ×2 (08:41→12:13)
[2021-11-21] MEDS ORDERED: CLOPIDOGREL BISULFATE 75 MG TAB PO SCH (09:00)
--- NOTE | 2021-11-21 12:56 | Cardiology Progress Note ---
Date of Service November 21, 2021 Assessment & Plan (1) NSTEMI (non-ST elevated myocardial infarction): (2) Chest pain: (3) CAD (coronary artery disease): (4) Diabetes mellitus, type II: (5) RBBB: Plan Summary: 1. Severe multivessel coronary artery disease -80 to 90% mid LAD 70% distal circumflex into OM3 2. Normal intracardiac filling pressure 3. Successful PCI of proximal to mid LAD with single drug-eluting stent (2.75 x 26 mm [place]; postdilated with 3.25 NC). Continue dual antiplatelet therapy for 1 year Continue metoprolol, losartan and rosuvastatin. Okay to discharge to home from a cardiac standpoint. My office will call to arrange follow-up in the next 2 to 4 weeks along with cardiac rehab referral. Admission and Anticipated Discharge Date Admission Date: November 19, 2021 Subjective Patient seen and examined. Chart reviewed. Telemetry reviewed. No further chest discomfort since PCI. Anxious for discharge. Review of Systems Review of Systems: All systems reviewed & are unremarkable except as noted in HPI & below Physical Exam Physical Exam: General: Awake, alert and oriented x 3. No acute distress. HEENT: Normocephalic, atraumatic. Pupils equal, round and reactive to light and accommodation. Extraocular muscles are intact. Anicteric sclera. Moist mucous membranes. Neck: No JVD. No bruit. Cardiovascular: Regular. Positive S-4. Normal S-1 and S-2. No S-3. No murmurs or rubs. Pulmonary: Clear to auscultation B/L. No rales, rhonchi or wheezing Abdomen: Bowel sounds x 4, soft. No rebound, guarding or tenderness. No organomegaly. Extremities: No clubbing, cyanosis or edema. +2 pedal pulses bilaterally. Skin: Warm and dry. Results & Data ([facility]) Vital Signs (Past 12 Hours) Vital Signs Temp Pulse Pulse Resp BP BP Pulse Ox 11/21/21 10:30 71 11/21/21 07:30 37.0 C 76 18 118/70 94 11/21/21 04:00 36.7 C 76 16 121/68 94 O2 Del Method 11/21/21 10:30 11/21/21 07:30 Room Air 11/21/21 04:00 Room Air
--- NOTE | 2021-11-21 15:00 | Discharge Summary ---
Date of Service November 21, 2021 Admission HPI Per Admitting Provider Patient is 70-year-old female with PMH CAD, DM II, HTN, history of TIA, asthma, diastolic dysfunction, paroxysmal SVT, GERD, depression, chronic right RBBB presented as direct admission from [facility] ER. Patient reports has been having intermittent chest pain with associated shortness of breath, mid back pain between scapulas that can occur with rest or exertion for several months. States yesterday had some pain between scapulas. This morning woke up and pain was increased. She reports she pulled some weeds this morning and then around 10 AM started with sharp mid chest pain with some diaphoresis, shortness of breath. Patient denies any dizziness, palpitations. She took 2 sublingual nitro without relief and she presented at [facility] ER. There EKG without acute ST changes, new left axis deviation was noted. Initial high-sensitivity troponin of 316. Patient was given 3 sublingual nitro and IV morphine with relief of chest pain. 1 inch Nitropaste was applied. Discussed with cardiology there who had recommended starting heparin. Patient received heparin bolus at [facility]. She was given 324 mg aspirin. Cardiology had recommended patient undergo cardiac catheterization which was unable to be performed there. [facility] had excepted however no beds currently available and then patient requested coming to an [facility]. Upon arrival here at [facility] patient denies chest pain. Reports 3 out of 10 discomfort between scapulas which has decreased since her initial presentation at [facility] ER. Denies any current shortness of breath, palpitations, dizziness, headache, chest pain. Chronic BLE edema reports is at baseline. Denies fever/chills, N/V/D/C, syncope, vision changes, neck pain, orthopnea, cough, sore throat, choking, otalgia, rhinorrhea, abdominal pain, paresthesias, weakness, extremity weakness, rashes, urinary symptoms. History cardiac cath 2014: 30% mid LAD stenosis. Nuclear stress test 06/2021 without inducible ischemia. Admission Exam Per Admitting Provider General: no distress, overweight Head: normocephalic, atraumatic Eyes: conjunctiva non-injected, anicteric ENT: normal inspection external ears, nose, mucous membranes moist Neck: supple, trachea midline Lungs: clear, no respiratory distress, no wheezing/rhonchi/rales CV: RRR, no murmur, trace pretibial edema Abd: normal BS, soft, non-tender Ext: no cyanosis, no calf tenderness Neuro: A&O x 3, no focal deficits noted, normal affect Skin: warm, dry Principal Diagnosis (1) NSTEMI (non-ST elevated myocardial infarction) s/p LHC on 11/20 with LAD stent placement (2) Chest pain: (3) CAD (coronary artery disease): (4) Diabetes mellitus, type II: (5) RBBB: Discharge Exam General: no distress, overweight Head: normocephalic, atraumatic Eyes: conjunctiva non-injected, anicteric ENT: normal inspection external ears, nose, mucous membranes moist Neck: supple, trachea midline Lungs: clear, no respiratory distress, no wheezing/rhonchi/rales CV: RRR, no murmur, trace pretibial edema Abd: normal BS, soft, non-tender Ext: no cyanosis, no calf tenderness Neuro: A&O x 3, no focal deficits noted, normal affect Skin: warm, dry Discharge Data Allergies Allergy/AdvReac Type Severity Reaction Status Date / Time furosemide Allergy Mild constipation, Unverified 08/09/13 07:07 vaginal itching lisinopril Allergy Mild cough Unverified 08/09/13 07:07 pioglitazone Allergy Mild shakiness, Unverified 08/09/13 07:07 nausea Consultations 11/19/21 18:52 Consult Cardiology Routine 11/20/21 16:07 Consult Cardiac Rehabilitation Routine Procedures Performed Operation Date: 11/20/21 12:00 Actual Procedures p Drug Eluting Stent SGl Vessel - Van Walker MD p Cath, Left with Cors and Vent - Van Walker MD s Cineradiography w/Routine Exam - Van Walker MD s IVUS Coronary Single Vessel - Van Walker MD Ordered Studies 11/20/21 12:45 CL Cath Imgs for PACS use only Stat 11/20/21 14:17 CL IVUS Coronary Single Vessel Routine Hospital Course (1) NSTEMI (non-ST elevated myocardial infarction): (2) Chest pain: (3) CAD (coronary artery disease): (4) Diabetes mellitus, type II: (5) Paroxysmal SVT (supraventricular tachycardia): (6) RBBB: Plan Patient is 70-year-old female with PMH CAD, DM II, HTN, history of TIA, asthma, diastolic dysfunction, paroxysmal SVT, GERD, depression, chronic right RBBB presented as direct admission from [facility] ER for upper back and chest pain. At [facility] EKG without acute ST changes, new left axis deviation was noted. Initial high- sensitivity troponin of 316. Patient was given 3 sublingual nitro and IV morphine with relief of chest pain. 1 inch Nitropaste was applied. Given 324mg ASA. IV heparin started. Cardiology had recommend cardiac cath that could not be completed there and she was transferred to [facility]. Patient underwent cardiac cath on 11/20; found to have severe multivessel coronary artery disease with 80 to 90% mid LAD. Successful PCI of proximal to mid LAD was done with drug-eluting stent. Patient was then observed overnight on telemetry. No new events on the telemetry were observed. Patient was discharged home with dual antiplatelet to be taken for at least 1 year, metoprolol, losartan and rosuvastatin. Patient is scheduled to follow-up with PCP, cardiology and cardiac rehab referral. Total Time Total Time Spent Total Time Spent (In Minutes): 35 Total Time Includes: Examination of the Patient, Discharge Planning, Medication Reconciliation, Communication With Other Providers and Other Discharge Plan Discharge Items Patient Disposition: Home - Self-Care Reason For Visit: NSTEMI Discharge Diagnosis: (1) Chest pain: (2) NSTEMI (non-ST elevated myocardial infarction): (3) CAD (coronary artery disease): Activity: Per Instructions section Non-emergency contact: Primary Care Provider Call non-emergency contact if: you have any medication questions and your symptoms worsen Follow-up/Referrals: Meg Davies MD [Primary Care Provider] - (Date & Time 11/26/2021 8:20 AM Provider DINORAH Salas Department [facility] ) Gay Tracy MD [Outside Practitioners] - (Date & Time 12/11/2021 2:30 PM Provider Gay Tracy MD Department Cardiology [facility] ) Diet: Carb Consistent or DM2 Addtl Attending Provider Instructions: You are admitted in the hospital and treated for heart attack. You have a stent placed in one of the arteries in your heart. You should take following medications for at least 1 year: 1) Aspirin 81 mg once daily 2) Plavix 75 mg once daily You need to follow-up with your primary care doctor and tumbling instructor. We are also substituting omeprazole with pantoprazole 40 mg once daily. Restrain from any strenuous activities for at least 2 weeks. Pending Studies at Discharge: No Stand-Alone Forms: [facility], Smoking Cessation Medications and DC Order Prescriptions: New clopidogrel 75 mg Tablet 75 mg PO QAM Qty: 30 0RF aspirin 81 mg Tablet,Delayed Release (Dr/Ec) 81 mg PO QAM Qty: 30 0RF pantoprazole 40 mg Tablet,Delayed Release (Dr/Ec) 40 mg PO DAILY Qty: 30 0RF Continued losartan 50 mg Tablet 50 mg PO DAILY calcium 600 mg Capsule 600 mg PO DAILY acetaminophen [Tylenol] 325 mg Tablet 650 mg PO BID PRN (Reason: Pain) dicyclomine 20 mg Tablet 20 mg PO QID PRN (Reason: Abdominal Discomfort) torsemide 5 mg Tablet 5 mg PO DAILY nitroglycerin 0.4 mg Tablet, Sublingual 0.4 mg sublingual DIRECTED Rx Instructions: x3 doses Q5Min max. metoprolol succinate 25 mg Tablet Extended Release 24 Hr 25 mg PO DAILY albuterol 90 mcg/actuation Aerosol 108 mcg INHALATION Q4 PRN (Reason: Wheezing) azelastine 137 mcg (0.1 %) Aerosol,[place] 1 spray INTRANASAL BID PRN (Reason: Nasal Congestion) Rx Instructions: administer into each nostril insulin aspart U-100 [Novolog Flexpen U-100 Insulin] 100 unit/mL (3 mL) Insulin Pen See Rx Instructions .ROUTE .COMPLEX Rx Instructions: 16 units with breakfast, 18 units with lunch, 26 units with supper. rosuvastatin [Crestor] 20 mg Tablet 20 mg PO DAILY duloxetine 30 mg Capsule,Delayed Release(Dr/Ec) 30 mg PO DAILY insulin glargine 100 unit/mL Cartridge 48 unit SUBCUT PM Mucinex 1,200 mg Tablet Extended Release 12hr 1,200 mg PO BID PRN (Reason: Congestion) cholecalciferol (vitamin D3) [Vitamin D3] 50 mcg (2,000 unit) Capsule 50 mcg PO DAILY fluticasone furoate-vilanterol [Breo Ellipta] 200-25 mcg/dose Blister With Device 1 inh INHALATION DAILY Ozempic 1 mg/dose (4 mg/3 mL) Pen Injector 1 mg SUBCUT WK Discontinued omeprazole 20 mg Tablet,Delayed Release (Dr/Ec) 20 mg PO DAILY Discharge Orders: Discharge Order (Routine); Ordered 11/21/21 Ordered By: Raul Santamaria Admission Data Admit Date/Time: 11/19/21 18:33 Attending Provider: Raul Santamaria Admit Provider: Helga Montes Primary Care Provider: Meg Davies Other Providers: Sheldon Ann Other Interventions: Discharge Summary Assessment (RN) Last Done: 11/21/21 12:59
== END 2021-11-21 13:38 | disposition home or self-care (01) | DRG 247 ==
LOC: 2S 18:33 → SUATTDRO 18:33